=== PATIENT | female | born 1945 | race Caucasian/White ===

== ENCOUNTER 2020-12-13 18:41 | Emergency (ER) | payer MEDICARE ==
[~2020-12-13] VITALS: Ht 167.6 cm; Wt 67.1 kg
[2020-12-13 18:42] VITALS: BP 146/60
== END 2020-12-13 22:43 | disposition home or self-care (01) ==
LOC: EDH 18:41
DX: M25.551 Pain in right hip (principal); Z53.21 Procedure and treatment not carried out due to patient leaving prior to being seen by health care provider
CPT/HCPCS: 73502